=== PATIENT | female | born 1945 | race Caucasian/White ===

== ENCOUNTER 2024-07-16 14:34 | Observation (INO) ==
[2024-07-16 16:40] LABS: ABS Basophils 0.1 10^3/uL (0.0-0.1); ABS Eosinophils 0.1 10^3/uL (0.0-0.5); ABS Lymphocytes 1.7 10^3/uL (1.0-4.8); ABS Monocytes 0.6 10^3/uL (0.0-0.9); ABS Neutrophils 6.3 10^3/uL (1.5-7.6); Eosinophil % 1.2 %; Hematocrit 26.5 % (35-45); Hemoglobin 9.1 g/dL (11.5-14.3); Lymphocyte % 19.5 %; Mean Corpuscular Hgb Conc 34.5 g/dL (31-36); Mean Corpuscular Volume 95.9 fL (80-97); Mean Platelet Volume 6.9 fL (7.5-11.2); Platelet Count 313 10^3/uL (150-450); Red Blood Count 2.76 10^6/uL (3.63-4.92); Red Cell Distribution Width 14.2 % (12-17); White Blood Count 8.8 10^3/uL (3.8-11.8)
[2024-07-16 16:51] LABS: Activated Partial Thrombo Time 29.4 seconds (26.0-38.0); INR 1.07 (0.85-1.14)
[2024-07-16 17:00] LABS: Albumin 3.3 g/dL (3.2-5.2); Albumin/Globulin Ratio 0.8 (1-3); Calcium 8.2 mg/dL (8.6-10.3); Creatinine, Serum 1.13 mg/dL (0.51-0.95); Globulin 4.4 g/dL (2-4); Potassium 4.4 mmol/L (3.5-5.0); Total Bilirubin 0.2 mg/dL (0.2-1.0); Total Protein 7.7 g/dL (6.4-8.9); eGFR CKD-EPI 49.2 (>60)
[2024-07-16] MEDS: Lactated Ringers 1000 ml BAG 1,000 ML IV ONE (17:10)
[2024-07-16 17:41] LABS: C Reactive Protein 2.29 mg/L (<8.01)
[2024-07-16 19:56] LABS: Hematocrit 22.1 % (35-45); Hemoglobin 7.5 g/dL (11.5-14.3)
[2024-07-16] MEDS: Iohexol 300 (CONTRAST) 10 ML SDV IV ONE (20:17)
[2024-07-16 21:37] LABS: Hematocrit 23.6 % (35-45); Hemoglobin 8.1 g/dL (11.5-14.3)
[2024-07-16 21:40] LABS: Urine Appearance Turbid; Urine Color Dark-Red
[2024-07-16 21:46] LABS: Urine Specific Gravity 1.022 (1.002-1.030)
[2024-07-16 22:04] LABS: Urine Bacteria Absent /HPF (Absent); Urine Red Blood Cell 3+(>10/hpf) /HPF (0-Trace); Urine White Blood Cell 3+(>20/hpf) /HPF (0-Trace)
[2024-07-17] MEDS: cefTRIAXone 1 gm/50 mL D5W 1 GM/50 ML BAG IV SCH (00:29)
[2024-07-17] MEDS: Lactated Ringers 1000 ml BAG 1,000 ML IV ONE (01:04)
[2024-07-17 06:08] LABS: Hematocrit 21.9 % (35-45); Hemoglobin 7.5 g/dL (11.5-14.3); Mean Corpuscular Hemoglobin 32.3 pg (27-33); Mean Corpuscular Hgb Conc 34.1 g/dL (31-36); Mean Corpuscular Volume 94.6 fL (80-97); Mean Platelet Volume 6.7 fL (7.5-11.2); Platelet Count 223 10^3/uL (150-450); Red Blood Count 2.32 10^6/uL (3.63-4.92); Red Cell Distribution Width 14.1 % (12-17)
[2024-07-17 07:01] LABS: Calcium 7.7 mg/dL (8.6-10.3); Creatinine, Serum 0.94 mg/dL (0.51-0.95); Magnesium 1.8 mg/dL (1.9-2.7); Potassium 4.2 mmol/L (3.5-5.0); eGFR CKD-EPI 61.3 (>60)
[2024-07-17] MEDS: Magnesium Sulfate 2 gm BAG 2 GM/50 ML BAG IVPB ONE (09:18)
[2024-07-17] MEDS: Cholecalciferol (VIT D3) 1,000 unit TAB PO SCH (09:28)
[2024-07-17 12:29] LABS: Urine Appearance Turbid; Urine Bilirubin Negative (Negative); Urine Blood 3+ (Negative); Urine Color Colorless; Urine Glucose Negative (Negative); Urine Ketones Negative (Negative); Urine Nitrite Negative (Negative); Urine Protein 1+ (>=30 mg/dL) (Negative); Urine Specific Gravity 1.014 (1.002-1.030); Urine Urobilinogen Negative (Negative); Urine pH 5.5 (5.0-8.0)
[2024-07-17 12:42] LABS: Urine Bacteria Absent /HPF (Absent); Urine Red Blood Cell 3+(>10/hpf) /HPF (0-Trace); Urine Squamous Epithelial Cell Present /HPF (Absent); Urine White Blood Cell 3+(>20/hpf) /HPF (0-Trace)
[2024-07-17 16:28] LABS: Hematocrit 21.6 % (35-45); Hemoglobin 7.6 g/dL (11.5-14.3)
[2024-07-18] MEDS: cefTRIAXone 1 gm/50 mL D5W 1 GM/50 ML BAG IV SCH (00:25)
[2024-07-18 06:35] LABS: ABS Eosinophils 0.1 10^3/uL (0.0-0.5); ABS Monocytes 0.5 10^3/uL (0.0-0.9); ABS Neutrophils 3.5 10^3/uL (1.5-7.6); Hematocrit 22.1 % (35-45); Hemoglobin 7.8 g/dL (11.5-14.3); Lymphocyte % 19.1 %; Mean Corpuscular Hemoglobin 33.4 pg (27-33); Mean Corpuscular Volume 95.2 fL (80-97); Mean Platelet Volume 6.8 fL (7.5-11.2); Platelet Count 207 10^3/uL (150-450); Red Blood Count 2.33 10^6/uL (3.63-4.92); Red Cell Distribution Width 14.2 % (12-17); White Blood Count 5.1 10^3/uL (3.8-11.8)
[2024-07-18 07:11] LABS: Calcium 7.9 mg/dL (8.6-10.3); Creatinine, Serum 0.71 mg/dL (0.51-0.95); Magnesium 2.2 mg/dL (1.9-2.7); Potassium 4.1 mmol/L (3.5-5.0); eGFR CKD-EPI 85.9 (>60)
[2024-07-18 09:20] VITALS: BP 123/62
== END 2024-07-18 12:45 | disposition home or self-care (01) ==
LOC: EDHOLD 14:34 → ED 14:34 → SUATTDRO 22:12 → MED 07-17 20:44
PROVIDERS: ADMIT Internal Medicine; ATTEND Student in an Organized Health Care Education/Training Program